=== PATIENT | male | born 1965 | race Caucasian/White ===

== ENCOUNTER 2021-06-22 10:50 | Outpatient (REF) | payer MEDICAID, SELFPAY ==
[2021-06-22 11:47] LABS: MANUAL DIFF FLAG NO
[2021-06-22 12:23] LABS: Basophils Percent Auto 0.4 % (0-2); Eosinophils Absolute Auto 0.3 X10*3/uL (0.0-0.4); Eosinophils Percent Auto 4.3 % (0-4); Hematocrit 47.7 % (42-52); Hemoglobin 16.4 g/dl (14.0-18.0); Imm Gran Abs Auto 0.03 X10*3/uL (0.00-0.03); Imm Gran Pct Auto 0.4 % (0.0-0.4); Lymphocytes Absolute Auto 2.3 X10*3/uL (1.2-4.9); Lymphocytes Percent Auto 30.5 % (20-40); Mean Corpuscular HGB Conc 34.4 g/dl (31.0-36.0); Mean Corpuscular Hemoglobin 30.1 pg (27.0-33.0); Mean Corpuscular Volume 87.7 fL (80-98); Mean Platelet Volume 9.6 fL (9.4-12.4); Monocytes Absolute Auto 0.7 X10*3/uL (0.1-1.2); Monocytes Percent Auto 9.7 % (2-11); Neutrophils Absolute Auto 4.2 X10*3/uL (2.0-8.3); Neutrophils Percent Auto 54.7 % (45-73); Platelet Count 290 X10*3/uL (160-400); Red Blood Count 5.44 X10*6/uL (4.60-5.80); Red Cell Distribution Width 12.3 % (11.0-16.0); White Blood Count 7.7 X10*3/uL (4.8-10.8)
[2021-06-22 12:50] LABS: Albumin Level 4.3 g/dL (3.5-5.0); Alkaline Phosphatase 43 U/L (39-117); Anion Gap 14 (12-20); Aspartate Amino Transferase 19 U/L (5-37); Bilirubin Total 1.4 mg/dL (0.0-1.0); Blood Urea Nitrogen 17 mg/dL (9-16); Calcium 9.5 mg/dL (8.4-10.2); Carbon Dioxide 28 mmol/L (22-29); Chloride 101 mmol/L (96-108); Estimated Glomerular Filt Rate > 60; Glucose Random 117 mg/dL (60-115); Potassium 3.5 mmol/L (3.3-5.1); Sodium 139 mmol/L (135-145); Total Protein 6.3 g/dL (6.5-8.0)
[2021-06-22 13:32] LABS: Alanine Aminotransferase 39 U/L (0-40)
== END 2021-06-22 10:51 | disposition home or self-care (01) ==
LOC: HO.LAB 10:50
PROVIDERS: PCP Nurse Practitioner Adult Health; Visit Provider Nurse Practitioner Family
DX: M10.9 Gout, unspecified (principal)
CPT/HCPCS: 36415; 80053; 84550; 85025; 99212

== ENCOUNTER → 2022-01-07 17:50 | Outpatient (REF) | payer MEDICAID, SELFPAY ==
--- NOTE | 2022-01-07 17:55 | CA_ITS ---
Transthoracic Echocardiogram Patient (Last, First, Middle): Rachna Ortiz, Gender: Male Date of : 1965 Age: 56 Procedure Date: 01/07/2022 Procedure Type: Transthoracic Echocardiogram Location: [facility] Height: 185.42 cm Weight: 145.15 kg BSA: 2.63 m2 Heart Rate: bpm BP: 130 / 80 mmHg Security Architect: VH/OT Referring MD: Chaya House [employer] PROJECT ENGINEER Symptoms: I10 HTN Study Quality: Technically Difficult ECG Rhythm: Sinus Conclusions: - The left ventricular systolic function is low normal. The calculated ejection fraction is 51% by biplane method. - The basal inferior segment is hypokinetic. - No obvious valvular pathology seen on this study. - Dilated sinus of Valsalva measured at 4.4 cm but poorly defined. Consider CTA for further evaluation. Findings Left Ventricle Normal left ventricular cavity size. The left ventricular systolic function is low normal. The calculated ejection fraction is 51% by biplane method. E/E prime ratio is between 8 and 15 consistent with indeterminate filling pressures. Evidence suggests grade I (mild) diastolic dysfunction. Difficult to assess wall thickness due to off axis views; possible moderate hypertrophy, when measured at the septum. Wall Motion Rest Echo Findings The basal inferior segment is hypokinetic. Right Ventricle Normal right ventricular cavity size and systolic function. Atria Both atria are normal in size. Aortic Valve The aortic valve was not well visualized. There is no aortic valve stenosis. There is no aortic valve regurgitation. Mitral Valve The mitral valve appears normal. There is trace mitral valve regurgitation. There is no mitral valve stenosis. Pulmonic Valve The pulmonic valve was not well visualized. Tricuspid Valve There is trace tricuspid valve regurgitation. The pulmonary artery systolic pressure is normal. Great Vessels The aorta was not well visualized. Dilated sinus of Valsalva measured at 4.4 cm but poorly defined. Venous The inferior vena cava is mildly dilated. Pericardium/Pleural There is no evidence of pericardial effusion. Prior Study Comparison No prior study available for comparison. Recommendations, Care & Conclusions No obvious valvular pathology seen on this study. Measurements 2D Linear Measurements IVSd: 1.54 0.6-0.9/0.6-1.0 cm LVIDd: 3.97 3.9-5.3/4.2-5.9 cm LVIDd Index: 1.51 2.4-3.2/2.2-3.1 cm/m2 LVIDs: 2.82 2.0-3.6 cm LVPWd: 1.57 0.7-1.1 cm Ao Root: 4.40 2.1-3.5 cm LA Diam: 4.20 2.7-3.8/3.0-4.0 cm LAIDs Index: 1.60 1.5-2.3 cm/m2 LV Mass: 304.02 67-162/88-224 g LV Mass Index: 115.60 43-95/49-115 g/m2 LVOT Diam: 2.60 3.0+(-)1.3 cm 2D Systolic Function EF 4C: 49.00 >55% EF 2C: 51.80 >55% EF BiP: 50.50 >55% Mitral Valve MV Pk E: 0.60 MV PK A: 0.85 MV Decel Time: 239.00 E/A: 0.70 E'Lateral: 4.90 E'Medial: 4.57 E/E' Med: 13.00 E/E' Lat: 12.20 PHT: 70.00 MVA PHT: 3.14 Decel Campbell: 2.49 Aortic Valve AoV Pk Panchito: 1.02 AoV Mn Panchito: 0.75 AoV VTI: 0.21 AoV Pk Grad: 4.00 Aov Mn Grad: 3.00 KAPIL Cont.VTI: 4.49 LVOT LVOT Pk Panchito: 0.84 LVOT Mn Panchito: 0.54 LVOT VTI: 0.18 LVOT Pk Grad: 3.00 LVOT Mn Grad: 1.00 LVOT Diam: 2.60 LVOT Area: 5.31 Diastolic Function MV Pk E: 0.60 MV Pk A: 0.85 E/A: 0.70 E'Medial: 4.57 E/E' Med: 13.00 E' Laterial: 4.90 E/E' Lat: 12.20 Right Ventricle TAPSE (mm): 23.00 TVS' Panchito: 14.00 Tricuspid Valve TR Pk Panchito: 1.65 TR Pk Grad: 11.00 RA Press: 8.00 RVSP: 19.00 Great Vessels Aorta Ao Root-2D: 4.40 2.0-3.7 cm Ao Asc: 4.00 2.1-3.4 cm Pulmonary Valve PV Pk Panchito: 0.79 Peak PV Grad: 2.00 Updated in Other Vendor System with Status of Final Jaspreet Hubbard MD electronically signed on 01/09/2022 12:46:29 PM with status of Final
== END ==
LOC: HO.CARD 17:50
PROVIDERS: Visit Provider Nurse Practitioner Adult Health
DX: I10 Essential (primary) hypertension (principal)
CPT/HCPCS: 93306

== ENCOUNTER 2022-02-09 10:31 | Outpatient (REF) | payer MEDICAID, SELFPAY ==
[2022-02-09 12:54] LABS: Alanine Aminotransferase 29 U/L (0-40); Albumin Level 4.4 g/dL (3.5-5.0); Alkaline Phosphatase 47 U/L (39-117); Anion Gap 13 (12-20); Aspartate Amino Transferase 17 U/L (5-37); Blood Urea Nitrogen 18 mg/dL (9-16); Calcium 9.9 mg/dL (8.4-10.2); Carbon Dioxide 29 mmol/L (22-29); Chloride 101 mmol/L (96-108); Estimated Glomerular Filt Rate > 60; Glucose Random 110 mg/dL (60-115); Potassium 3.7 mmol/L (3.3-5.1); Sodium 139 mmol/L (135-145); Total Protein 7.2 g/dL (6.5-8.0); Uric Acid 6.3 mg/dL (3.4-7.0)
== END 2022-02-09 10:32 | disposition home or self-care (01) ==
LOC: HO.LAB 10:31
PROVIDERS: PCP Nurse Practitioner Adult Health; Visit Provider Nurse Practitioner Family
DX: M10.9 Gout, unspecified (principal); Z79.899 Other long term (current) drug therapy
CPT/HCPCS: 36415; 80053; 84550; 99212

== ENCOUNTER → 2022-11-07 12:41 | Outpatient (BNVA) | payer MEDICAID, SELFPAY | PROVIDERS: PCP Nurse Practitioner Adult Health; Visit Provider Nurse Practitioner Family | DX: M10.9 Gout, unspecified (principal); Z79.52 Long term (current) use of systemic steroids | CPT/HCPCS: 99212 ==